=== PATIENT | female | born 1975 | race Caucasian/White ===

== ENCOUNTER → 2019-05-23 | Outpatient (CLI) | payer OTHER ==
--- NOTE | 2019-05-23 15:55 | REP ---
MRI LEFT SHOULDER: TECHNIQUE: Axial T2 fat sat, gradient echo, sagittal oblique T2 fat sat, coronal oblique T1, T2 fat sat. There is mild ill-defined high signal in the supraspinatus tendon on T2-weighted images compatible with mild tendinopathy/tendinitis. No rotator cuff tendon tear is seen. There are minimal hypertrophic degenerative changes of the acromioclavicular joint. Acromion is type 2. The biceps tendon is within the bicipital groove. There is a tiny amount of surrounding fluid. There is no Hill-Sachs deformity. Deltoid muscle demonstrates no abnormal signal. Biceps labral complex is intact. I do not see evidence of a labral tear. There is no paralabral cyst. Subcortical cystic change are seen laterally in the humeral head. There is no bone marrow edema or occult fracture. There is a normal amount of joint fluid. IMPRESSION: Mild supraspinatus tendinopathy/tendinitis. No rotator cuff tear or labral tear. Mid subcortical cystic changes lateral humeral head. Electronically Signed by Niels Elizabeth MD 05/23/2019 04:15 P
== END ==
LOC: M RAD 13:44
PROVIDERS: ATTEND Physician Assistant
DX: M25.512 Pain in left shoulder (principal); G89.29 Other chronic pain; M75.32 Calcific tendinitis of left shoulder

== ENCOUNTER → 2021-01-04 | Outpatient (CLI) | payer OTHER | LOC: M WHC 14:27 | PROVIDERS: ATTEND Obstetrics & Gynecology | DX: N94.6 Dysmenorrhea, unspecified (principal) ==

== ENCOUNTER → 2021-04-09 | Outpatient (CLI) | payer OTHER ==
--- NOTE | 2021-04-09 10:10 | REP ---
INDICATION: N94.6 DYSMENORRHEA COMPARISON: None. TECHNIQUE: Transabdominal pelvic ultrasound followed by transvaginal examination for better evaluation of the endometrium and adnexa. FINDINGS: Bladder is unremarkable and measures 7.5 x 5.1 x 5.6 cm. Enlarged heterogeneous uterus measures 11.3 x 5.8 x 7.4 cm. The endometrial complex measures 3.9 mm thickness. No discrete uterine or endometrial abnormalities are appreciated. Bilateral ovaries are normal in appearance. Right ovary measures 1.9 x 1.4 x 1.7 cm. Left ovary measures 2.8 x 1.7 x 2.2 cm. No pelvic fluid or adnexal mass lesion. IMPRESSION: Moderately enlarged heterogeneous uterus without discrete abnormality. <Electronically signed by Sergey Gonzalez > 04/09/21 [id number]
== END ==
LOC: M WHC 08:31
PROVIDERS: ATTEND Obstetrics & Gynecology
DX: N94.6 Dysmenorrhea, unspecified (principal)

== ENCOUNTER → 2021-04-15 | Outpatient (REF) | payer OTHER ==
[~2021-04-15] MED LIST: COLA100C5 PO; IBUP80TA PO; LEVO2TA PO; LEXA1TAB PO; OMEP1CAP73 PO; PERCOCET PO; PROAAER10 INH
== END ==
LOC: M SFHCWAGY 19:11
PROVIDERS: ATTEND Obstetrics & Gynecology
DX: N94.6 Dysmenorrhea, unspecified (principal)

== ENCOUNTER → 2021-09-16 | Outpatient (CLI) | payer OTHER ==
[~2021-09-16] MED LIST changes: -COLA100C5 PO; -IBUP80TA PO; -PERCOCET PO
== END ==
LOC: M LABSMTC 09:11
PROVIDERS: ATTEND Anesthesiology
DX: Z01.818 Encounter for other preprocedural examination (principal); Z11.52 Encounter for screening for COVID-19

== ENCOUNTER 2021-09-20 08:30 | Day surgery (SDC) | payer OTHER ==
[~2021-09-20] VITALS: Ht 157.5 cm; Wt 61.7 kg
[~2021-09-20 08:30] MED LIST changes: +DESFLURANE 240 ML INHALANT As Ordered ONE; +KETOROLAC 60MG 2ML VIAL As Ordered ONE; +LIDOCAINE 1% MDV 20ML VIAL SQ PRN; +LIDOCAINE 2% 100MG/5ML SDV (FOR ANES.) As Ordered ONE; +LR 1,000 ML IV ONE; +LR 1,000 ML IV SCH; +MIDAZOLAM INJ 2MG/2ML VIAL (J2250 PER 1MG) As Ordered ONE; +ONDANSETRON 4MG/2ML VIAL As Ordered ONE; +ROCURONIUM BROMIDE 50 MG/5 ML VIAL As Ordered ONE; +SUGAMMADEX SODIUM 500 MG/5 ML VIAL (BRIDION) As Ordered ONE; +ceFAZolin SOD 2 GM in IV 1 EA IV ONE; +dexameTHASONE 4 MG/ML 1ML VIAL (J1100 PER 1MG) As Ordered ONE; +fentaNYL 250 MCG/5 ML INJECTION As Ordered ONE; +propofoL 200 MG/20 ML VIAL As Ordered ONE
[2021-09-20 09:06] LABS: HEMATOCRIT 41.1 % (36.0-47.0); HEMOGLOBIN 13.6 g/dl (12.0-15.5); MEAN CORPUSCULAR HEMOGLOBIN 30.4 pg (27.0-33.0); MEAN CORPUSCULAR HGB CONC 33.1 g/dl (32.0-36.5); MEAN CORPUSCULAR VOLUME 91.7 fl (80.0-96.0); PLATELET COUNT, AUTOMATED 297 10^3/uL (150-450); RED BLOOD COUNT 4.48 10^6/uL (4.00-5.40); WHITE BLOOD COUNT 11.2 10^3/uL (4.0-10.0)
[2021-09-20 09:30] LABS: HCG, SERUM QUALITATIVE NEGATIVE (NEGATIVE)
[2021-09-20] MEDS ORDERED: SCOPOLAMINE 1MG TRANSDERMAL PATCH TOP ONE (10:10)
[2021-09-20] MEDS ORDERED: BUPIVACAINE HCL 0.25% 30ML VIAL As Ordered ONE (10:13)
[2021-09-20] MEDS ORDERED: METHYLENE BLUE 0.5% (5MG/ML) 10 ML AMP (PROVAYBLUE) As Ordered ONE (10:14)
[2021-09-20] MEDS ORDERED: SCOPOLAMINE 1MG TRANSDERMAL PATCH As Ordered ONE (10:14)
[2021-09-20] MEDS ORDERED: ACETAMINOPHEN 1000MG 100ML IV BTL (OFIRMEV) (J0131 PER 10MG) As Ordered ONE (10:24)
[2021-09-20] MEDS ORDERED: ROCURONIUM BROMIDE 50 MG/5 ML VIAL As Ordered ONE (11:04)
[2021-09-20] MEDS ORDERED: ceFAZolin 2 GM/D5W 50 ML IV BAG (J0690 PER 500MG) As Ordered ONE (13:49)
[2021-09-20] MEDS ORDERED: ESMOLOL INJ 100MG/10ML VIAL As Ordered ONE (14:01)
[2021-09-20] MEDS ORDERED: ONDANSETRON 4MG/2ML VIAL IV PRN ×2 (14:10→14:20)
[2021-09-20] MEDS ORDERED: PERCOCET 5MG/325MG TAB PO PRN ×2 (14:10→14:20)
[2021-09-20] MEDS ORDERED: LR 1,000 ML IV SCH (14:20)
[2021-09-20] MEDS ORDERED: METOCLOPRAMIDE INJ 10MG/2ML VIAL (J2765 PER 1) IV PRN (14:20)
[2021-09-20] MEDS ORDERED: fentaNYL 100 MCG/2 ML INJECTION IV PRN (14:20)
[2021-09-20] MEDS ORDERED: PERCOCET PO (14:21)
[2021-09-20] MEDS ORDERED: COLA100C5 PO (14:21)
[2021-09-20] MEDS ORDERED: IBUP80TA PO (14:21)
[2021-09-20] MEDS: PERCOCET 5MG/325MG TAB PO PRN ×3 (14:40→19:14)
[2021-09-20] MEDS: LR 1,000 ML IV SCH ×2 (14:55→19:14)
[2021-09-20 15:35] VITALS: BP 143/78
[2021-09-20 16:05] VITALS: BP 138/69
[2021-09-20 17:10] VITALS: BP 134/75
[2021-09-20 18:10] VITALS: BP 150/73
[2021-09-20 19:02] VITALS: BP 149/81
[2021-09-20 20:00] VITALS: BP 114/71
[2021-09-20] MEDS: DOCUSATE SODIUM 100MG CAPSULE PO SCH (20:11)
[2021-09-20] MEDS: KETOROLAC 30 MG/ML 1ML VIAL IV SCH (20:11)
[2021-09-21 02:00] VITALS: BP 114/68
[2021-09-21] MEDS: KETOROLAC 30 MG/ML 1ML VIAL IV SCH ×2 (02:00→08:11)
[2021-09-21] MEDS: PERCOCET 5MG/325MG TAB PO PRN ×2 (02:55→08:58)
[2021-09-21] MEDS: LR 1,000 ML IV SCH (04:20)
[2021-09-21 06:00] VITALS: BP 104/55
[2021-09-21 07:07] LABS: BASO % 0.2 % (0.0-1.0); EOS # 0.1 10^3/uL (0.0-0.5); EOS % 0.5 % (0.0-3.0); HEMATOCRIT 29.9 % (36.0-47.0); LYMPH # 1.9 10^3/uL (1.5-5.0); LYMPH % 19.1 % (24.0-44.0); MEAN CORPUSCULAR HEMOGLOBIN 30.5 pg (27.0-33.0); MEAN CORPUSCULAR HGB CONC 33.1 g/dl (32.0-36.5); MONO % 9.5 % (2.0-8.0); NEUTROPHILS # 7.1 10^3/uL (1.5-8.5); NEUTROPHILS % 70.4 % (36.0-66.0); PLATELET COUNT, AUTOMATED 219 10^3/uL (150-450); RED BLOOD COUNT 3.25 10^6/uL (4.00-5.40); WHITE BLOOD COUNT 10.1 10^3/uL (4.0-10.0)
[2021-09-21 07:09] LABS: HEMOGLOBIN 9.9 g/dl (12.0-15.5)
[2021-09-21] MEDS: DOCUSATE SODIUM 100MG CAPSULE PO SCH (08:10)
[2021-09-21 10:00] VITALS: BP 111/59
[2021-09-21] MEDS ORDERED: IBUPROFEN 800 MG TAB PO SCH (16:00)
== END 2021-09-21 12:00 | disposition home or self-care (01) ==
LOC: M SDC 08:30 → M OBS 15:44 → M SDC 09-21 12:00
PROVIDERS: ATTEND Obstetrics & Gynecology
DX: N80.0 Endometriosis of uterus (principal); D25.9 Leiomyoma of uterus, unspecified; N93.9 Abnormal uterine and vaginal bleeding, unspecified; N73.6 Female pelvic peritoneal adhesions (postinfective); R10.2 Pelvic and perineal pain; K21.9 Gastro-esophageal reflux disease without esophagitis; L30.9 Dermatitis, unspecified; J45.909 Unspecified asthma, uncomplicated; F41.9 Anxiety disorder, unspecified; E89.0 Postprocedural hypothyroidism; R06.83 Snoring; Z91.040 Latex allergy status; Z79.899 Other long term (current) drug therapy
CPT/HCPCS: 36415; 58552; 84703; 85025; 85027; 86850; 86900; 86901; 88307; 96374; 96376; J0131; J0690; J1100; J1885; J2250; J2405; J3010; Q9968; S2900